=== PATIENT | female | born 1955 | race Caucasian/White ===

== ENCOUNTER 2019-03-31 06:59 | Emergency (ER) | payer OTHER ==
[~2019-03-31] VITALS: Ht 170.2 cm; Wt 101.6 kg
[~2019-03-31 06:59] MED LIST: ALBU90OI; ALBU90OI6 INH; ANTIBIOTIC; AZIT250 PO; CEPH500 PO; CIPR500 PO; CYCL10 PO; FLUO10; FLUO20 PO; FLUT110OIA IH; FURO40 PO; HYDACE5 PO; HYDCHL25 PO; HYDMOR2 PO; LEVFLO500 PO; LEVSOD175; LEVSOD200 PO; LISI20 PO; MONT10T PO; MULTIVITAMIN; NAPR500; NAPR500 PO; OXYACE5T PO; OXYACE7.5T PO; POTCHL10ER PO; PRED20 PO; PROM25 PO; SIMETHICONE; STOOL SOFTENER; TIOT18 IH; [UNRECOGNIZED DRUG - REMARK]; [UNRECOGNIZED DRUG - REMARK]
[2019-03-31] MEDS ORDERED: Vistaril50 MG PO (07:29)
[2019-03-31] MEDS ORDERED: CEPH500 PO (07:29)
[2019-03-31] MEDS ORDERED: Bactrim Ds Tab1 EACH PO (07:29)
== END 2019-03-31 07:54 | disposition home or self-care (01) ==
LOC: ER 06:59
DX: L02.411 Cutaneous abscess of right axilla (principal); L29.9 Pruritus, unspecified; J44.9 Chronic obstructive pulmonary disease, unspecified; Z87.891 Personal history of nicotine dependence
CPT/HCPCS: 99283; Q0177

== ENCOUNTER 2020-10-03 23:20 | Inpatient (IN) | payer OTHER ==
[~2020-10-03] VITALS: Ht 172.7 cm; Wt 121.6 kg
[~2020-10-03 23:20] MED LIST changes: +Bactrim Ds Tab1 EACH PO; +Vistaril50 MG PO
[2020-10-03] MEDS ORDERED: IBUP200 (23:42)
[2020-10-03] MEDS ORDERED: BUDE.25 INH (23:42)
[2020-10-03] MEDS ORDERED: ACET325 PO (23:42)
[2020-10-03] MEDS ORDERED: TRAZ50 (23:43)
[2020-10-03] MEDS ORDERED: LOSA25 (23:44)
[2020-10-03] MEDS ORDERED: EUTHYROX50 MCG (23:44)
[2020-10-03 23:56] LABS: PCO2 Arterial 46.7 mmHg (35-45); PO2 Arterial 65.4 mmHg (80-100); pH Blood Arterial 7.43 (7.35-7.45)
[2020-10-04 00:23] LABS: BASOPHILS ABSOLUTE AUTO 0.03 K/mm3 (0.00-0.23); BASOPHILS PERCENT AUTO 0 % (0-2); EOSINOPHILS ABSOLUTE AUTO 0.01 K/mm3 (0.00-0.68); EOSINOPHILS PERCENT AUTO 0 % (0-6); Hemoglobin 10.9 g/dL (11.5-16.0); IMMATURE GRAN ABSOLUTE AUTO 0.19 K/mm3 (0.00-0.10); IMMATURE GRAN PERCENT AUTO 1 % (0-1); LYMPHOCYTES ABSOLUTE AUTO 0.59 K/mm3 (0.84-5.20); LYMPHOCYTES PERCENT AUTO 3 % (21-46); MONOCYTES ABSOLUTE AUTO 0.57 K/mm3 (0.16-1.47); MONOCYTES PERCENT AUTO 3 % (4-13); Mean Corpuscular HGB 32.8 pg (26.0-34.0); Mean Corpuscular Volume 99 fL (80-100); Mean Platelet Volume 9.3 fL (9.1-12.4); NEUTROPHILS ABSOLUTE AUTO 18.99 K/mm3 (1.96-9.15); NEUTROPHILS PERCENT AUTO 93 % (41-73); Platelet Count 163 K/mm3 (150-400); RDW Coefficient Variation 12.6 % (11.7-14.2); RDW Standard Deviation 45.8 fL (35.1-46.3); Red Blood Cell Count 3.32 M/mm3 (3.80-5.20); White Blood Cell Count 20.38 K/mm3 (4.00-11.30)
[2020-10-04 00:47] LABS: Alanine Aminotransfer (ALT/SGP 17 U/L (12-78); Albumin, Blood 2.8 g/dL (3.4-5.0); Albumin/Globulin Ratio 0.6 (0.8-1.8); Alk Phos 90 U/L (50-136); Anion Gap 5 mmol/L (6-16); Aspartate Aminotrans (AST/SGOT 51 U/L (12-37); Bilirubin, Total 0.8 mg/dL (0.1-1.0); Blood Urea Nitrogen 27 mg/dL (8-24); Bun/Creatinine Ratio 29.1 (12.0-20.0); CO2, Blood 32 mmol/L (21-32); Calcium, Blood 8.6 mg/dL (8.5-10.1); Chloride, Blood 90 mmol/L (98-108); Creatinine, Blood 0.93 mg/dL (0.40-1.00); Ethanol (Alcohol), Blood, Med <3 mg/dL; Globulin, Blood 4.5 g/dL (2.2-4.0); Glomerular Filtration Rate >60 (60-); Glucose, Blood 94 mg/dL (70-99); Potassium, Blood 4.3 mmol/L (3.5-5.5); Salicylate <1.7 mg/dL (2.8-20.0); Sodium, Blood 127 mmol/L (136-145); Total Protein, Blood 7.3 g/dL (6.4-8.2); Troponin I <0.015 ng/mL (0.000-0.040)
[2020-10-04 00:50] LABS: Acetaminophen, Random <2.0 ug/mL (10.0-30.0)
[2020-10-04 01:20] LABS: Source, Urine Clean Catch
[2020-10-04 01:23] LABS: Appearance, Urine Hazy (Clear); Bilirubin, Urine Neg (Neg); Blood, Urine 5+ (Neg); Color, Urine Amber (P-Yellow); Glucose Qualitative, Urine Neg (Neg); Ketones, Urine Neg (Neg); Leukocyte Esterase, Urine 3+ (Neg); Nitrite, Urine Pos (Neg); Protein, Urine 3+ (Neg); Urobilinogen, Urine 1+ (Normal)
[2020-10-04 01:28] LABS: Bacteria Many /hpf; Red Blood Cells, Urine 0-2 /hpf (0-2); Squamous Epithelial Cells Few /hpf (Few); White Blood Cells, Urine 25-50 /hpf (0-5)
[2020-10-04 01:33] LABS: U Amphetamine Screen DETECTED; U Barbituate Screen Not Detected; U Benzodiazapine Screen Not Detected; U Buprenorphine Screen Not Detected; U Cannabinoids Screen DETECTED; U Cocaine Screen Not Detected; U Methadone Screen Not Detected; U Methamphetamine Screen DETECTED; U Opiates Screen Not Detected; U Oxycodone Screen Not Detected; U Phencyclidine Screen Not Detected; U Propoxyphene Screen Not Detected
[2020-10-04] MEDS ORDERED: TIOT18 INH (11:43)
[2020-10-04] MEDS ORDERED: BUDESONIDE-FO10.2 G2 INH (11:43)
[2020-10-04] MEDS ORDERED: LOSARTAN POTAS100 M1 PO (11:44)
[2020-10-04] MEDS ORDERED: OMEP20ER PO (11:44)
[2020-10-04] MEDS ORDERED: BACL10 PO (11:44)
[2020-10-04] MEDS ORDERED: TRAZ150T57 PO (11:44)
[2020-10-04] MEDS ORDERED: PROZAC20 M2 PO (11:45)
[2020-10-04] MEDS ORDERED: LEVSOD100 PO (11:45)
--- NOTE | 2020-10-04 18:32 | NUR ---
SHIFT SUMMARY: ASSUMED CARE OF PATIENT UPON HER ARRIVAL FROM ED AT 1505. A&O X 3, BUT IS CALLING OUT, MAKING NONSENSICAL NOISES. C/O PAIN IN LLE AND BACK; MEDICATED PER EMAR, GIVEN K PAD AND REPOSITIONED SHE COULD TOLERATE. LLE IS ERYTHEMATOUS, EDEMATOUS, HOT, AND PAINFUL TO TOUCH. UNABLE TO EAT MUCH DINNER, ONLY HAS UPPER DENTURES, CHANGED TO SOFT DIET. ON ROOM AIR, STATED SHE USES OXYGEN @ 2 L/MIN NC WHILE SLEEPING. STATED SHE DRINKS ALCOHOL, BUT "A SIX PACK OF BEER LASTS ME ABOUT A WEEK." STATED HAS NOT HAD A DRINK IN A "LONG TIME." HAS GREAT DIFFICULTY MOVING BLE.
[2020-10-05 05:25] LABS: BASOPHILS ABSOLUTE AUTO 0.02 K/mm3 (0.00-0.23); BASOPHILS PERCENT AUTO 0 % (0-2); EOSINOPHILS ABSOLUTE AUTO 0.06 K/mm3 (0.00-0.68); EOSINOPHILS PERCENT AUTO 0 % (0-6); Hematocrit 30.3 % (33.0-51.0); Hemoglobin 9.5 g/dL (11.5-16.0); IMMATURE GRAN ABSOLUTE AUTO 0.12 K/mm3 (0.00-0.10); IMMATURE GRAN PERCENT AUTO 1 % (0-1); LYMPHOCYTES ABSOLUTE AUTO 0.61 K/mm3 (0.84-5.20); LYMPHOCYTES PERCENT AUTO 4 % (21-46); MONOCYTES ABSOLUTE AUTO 0.53 K/mm3 (0.16-1.47); MONOCYTES PERCENT AUTO 3 % (4-13); Mean Corpuscular HGB 31.9 pg (26.0-34.0); Mean Corpuscular HGB Conc 31.4 g/dL (31.5-36.5); Mean Corpuscular Volume 102 fL (80-100); Mean Platelet Volume 9.7 fL (9.1-12.4); NEUTROPHILS ABSOLUTE AUTO 14.57 K/mm3 (1.96-9.15); NEUTROPHILS PERCENT AUTO 92 % (41-73); Platelet Count 148 K/mm3 (150-400); RDW Coefficient Variation 12.8 % (11.7-14.2); RDW Standard Deviation 47.8 fL (35.1-46.3); Red Blood Cell Count 2.98 M/mm3 (3.80-5.20); White Blood Cell Count 15.91 K/mm3 (4.00-11.30)
[2020-10-05 05:33] LABS: Alanine Aminotransfer (ALT/SGP 19 U/L (12-78); Albumin/Globulin Ratio 0.5 (0.8-1.8); Alk Phos 107 U/L (50-136); Anion Gap 1 mmol/L (6-16); Aspartate Aminotrans (AST/SGOT 62 U/L (12-37); Bilirubin, Total 0.5 mg/dL (0.1-1.0); Blood Urea Nitrogen 20 mg/dL (8-24); Bun/Creatinine Ratio 24.5 (12.0-20.0); CO2, Blood 34 mmol/L (21-32); Calcium, Blood 8.2 mg/dL (8.5-10.1); Chloride, Blood 93 mmol/L (98-108); Creatinine, Blood 0.82 mg/dL (0.40-1.00); Globulin, Blood 4.1 g/dL (2.2-4.0); Glomerular Filtration Rate >60 (60-); Glucose, Blood 94 mg/dL (70-99); Potassium, Blood 3.9 mmol/L (3.5-5.5); Sodium, Blood 128 mmol/L (136-145); Total Protein, Blood 6.1 g/dL (6.4-8.2)
--- NOTE | 2020-10-05 06:30 | NUR ---
65 year old Female admitted with acute cellulitis of lt LE. PT states wound was initally caused by fall. PT has extensive bruising in lower abd & pelvic area . She saysshe had a oxygen tank fall on her. LT le 4 plus edema & hot red area from ankle to upper thigh. Recieving IV fluids void x 2 dark mario urine. Provided yogurt & PT took well. On IV antibiotics to tx cellulitis & UTI. Skin care to lt le multiple times to promote healing.Support offered for current illness.
--- NOTE | 2020-10-05 17:45 | NUR ---
SHIFT SUMMARY: NO ACUTE EVENTS. PATIENT CALMER TODAY, MORE COOPERATIVE. C/O PAIN IN LLE AND BACK; MEDICATED PER EMAR WITH ADEQUATE RELIEF, TRAMADOL ADDED. ERYTHEMA ON LLE SLIGHTLY IMPROVED. WEARS O2 @ 2 L/MIN NC WHEN SLEEPING. HAD VENOUS U/S TODAY. ABLE TO REPOSITION WITH ASSISTANCE, USING BEDPAN. HAD VISIT FROM DAUGHTER BANG TODAY; THIS AUTHOR GAVE HER UPDATE ON PT CONDITION WITH PT'S VERBAL CONSENT. SLEPT MOST OF THE DAY.
[2020-10-06 04:56] LABS: Hematocrit 30.2 % (33.0-51.0); Hemoglobin 9.6 g/dL (11.5-16.0); Mean Corpuscular HGB Conc 31.8 g/dL (31.5-36.5); Mean Corpuscular Volume 104 fL (80-100); Mean Platelet Volume 9.4 fL (9.1-12.4); Platelet Count 171 K/mm3 (150-400); RDW Coefficient Variation 12.9 % (11.7-14.2); RDW Standard Deviation 49.5 fL (35.1-46.3); Red Blood Cell Count 2.91 M/mm3 (3.80-5.20); White Blood Cell Count 12.74 K/mm3 (4.00-11.30)
[2020-10-06 05:26] LABS: Alanine Aminotransfer (ALT/SGP 21 U/L (12-78); Albumin, Blood 1.9 g/dL (3.4-5.0); Albumin/Globulin Ratio 0.4 (0.8-1.8); Alk Phos 134 U/L (50-136); Anion Gap 2 mmol/L (6-16); Aspartate Aminotrans (AST/SGOT 48 U/L (12-37); Bilirubin, Total 0.5 mg/dL (0.1-1.0); Blood Urea Nitrogen 17 mg/dL (8-24); Bun/Creatinine Ratio 22.8 (12.0-20.0); CO2, Blood 34 mmol/L (21-32); Calcium, Blood 8.5 mg/dL (8.5-10.1); Chloride, Blood 95 mmol/L (98-108); Creatinine, Blood 0.75 mg/dL (0.40-1.00); Globulin, Blood 4.3 g/dL (2.2-4.0); Glomerular Filtration Rate >60 (60-); Glucose, Blood 82 mg/dL (70-99); Potassium, Blood 3.9 mmol/L (3.5-5.5); Sodium, Blood 131 mmol/L (136-145); Total Protein, Blood 6.2 g/dL (6.4-8.2)
[2020-10-06 05:27] LABS: BAND PERCENT MAN 16 % (0-8); BASOPHILS PERCENT MAN 0 % (0-2); EOSINOPHILS ABSOLUTE MAN 0.12 K/mm3 (0.00-0.68); EOSINOPHILS PERCENT MAN 1 % (0-6); LYMPHOCYTES ABSOLUTE MAN 0.63 K/mm3 (0.84-5.20); LYMPHOCYTES PERCENT MAN 5 % (21-46); MONOCYTES ABSOLUTE MAN 0.25 K/mm3 (0.16-1.47); MONOCYTES PERCENT MAN 2 % (4-13); NEUTROPHILS ABSOLUTE MAN 11.72 K/mm3 (1.96-9.15); SEG NEUTROPHILS PERCENT MAN 76 % (41-73); TOTAL CELLS COUNTED 100
--- NOTE | 2020-10-06 17:36 | NUR ---
SHIFT SUMMARY PT ALERT ORIENTED AND VERY EMOTIONAL TODAY. PT WAS EDUCATED BY THE DR ABOUT THE USE OF DRUGS; BUT PT WAS VERY DEFENSIVE AND STATED THAT SHE ONLY USED IT ON HER BIRTHDAY. PT HAS CELLULITIS ON HER LLE; VERY SWOLLEN- ELEVATE THE AFFECTED SITE AND CONTINUE TO MONITOR; SKIN CARE PROVIDED- SEE PIC IN CHART. PT IS RECEIVING ABX FOR IT AND IT SEEMS GETTING BETTER PER DR. PT WORKED WITH PT/OT TODAY- SEE PT/OT NOTES. ENCOURAGE THE PT TO USE BSC WITH FWW 1 ASSIST WITH GAITBELT FOR MOBILITY. BED ALARM IS ON AND CALL LIGHT WITHIN REACH.
--- NOTE | 2020-10-06 19:50 | NUR ---
ASSUMED CARE. MARIANELA IS AOX3, BUT IS VERY EMOTIONAL WITH FEW MOOD SWINGS YOU TALK WITH HER. LEFT LEG HAS REDNESS AND SWELLING ON LATERAL SIDE OF LEG UP TO GROIN AREA. SHE ALSO HAS SWELLING AND REDNESS AROUND THE CALF AREA. AREAS ARE VERY TENDER ESPECIALLY BEHIND THE KNEE AND THIGH. PAIN IS ONLY WHEN SHE MOVES THE LEG. SHE IS VERY DROWSY AND STATES SHE IS SLEEPY. GROIN IS BRUISED AND THE HIP FROM FALLING. LUNGS ARE CLEAR BUT DIMINISHED. ON 2 LITERS WHICH IS HER BASE LINE. DENIES ANY NEEDS OR COMPLAINTS AT THIS TIME. CALL LIGHT IS IN REACH.
[2020-10-07 05:05] LABS: BASOPHILS ABSOLUTE AUTO 0.06 K/mm3 (0.00-0.23); BASOPHILS PERCENT AUTO 1 % (0-2); EOSINOPHILS ABSOLUTE AUTO 0.21 K/mm3 (0.00-0.68); EOSINOPHILS PERCENT AUTO 2 % (0-6); Hematocrit 31.4 % (33.0-51.0); Hemoglobin 9.8 g/dL (11.5-16.0); IMMATURE GRAN ABSOLUTE AUTO 0.41 K/mm3 (0.00-0.10); IMMATURE GRAN PERCENT AUTO 4 % (0-1); LYMPHOCYTES ABSOLUTE AUTO 0.89 K/mm3 (0.84-5.20); LYMPHOCYTES PERCENT AUTO 8 % (21-46); MONOCYTES ABSOLUTE AUTO 0.77 K/mm3 (0.16-1.47); MONOCYTES PERCENT AUTO 7 % (4-13); Mean Corpuscular HGB Conc 31.2 g/dL (31.5-36.5); Mean Corpuscular Volume 106 fL (80-100); Mean Platelet Volume 9.5 fL (9.1-12.4); NEUTROPHILS PERCENT AUTO 78 % (41-73); Platelet Count 236 K/mm3 (150-400); RDW Coefficient Variation 13.1 % (11.7-14.2); RDW Standard Deviation 50.8 fL (35.1-46.3); Red Blood Cell Count 2.97 M/mm3 (3.80-5.20); White Blood Cell Count 10.84 K/mm3 (4.00-11.30)
[2020-10-07 05:42] LABS: Alanine Aminotransfer (ALT/SGP 23 U/L (12-78); Albumin, Blood 1.8 g/dL (3.4-5.0); Albumin/Globulin Ratio 0.4 (0.8-1.8); Alk Phos 147 U/L (50-136); Anion Gap 2 mmol/L (6-16); Aspartate Aminotrans (AST/SGOT 41 U/L (12-37); Bilirubin, Total 0.3 mg/dL (0.1-1.0); Blood Urea Nitrogen 14 mg/dL (8-24); Bun/Creatinine Ratio 17.9 (12.0-20.0); CO2, Blood 35 mmol/L (21-32); Calcium, Blood 8.7 mg/dL (8.5-10.1); Chloride, Blood 97 mmol/L (98-108); Creatinine, Blood 0.78 mg/dL (0.40-1.00); Globulin, Blood 4.6 g/dL (2.2-4.0); Glomerular Filtration Rate >60 (60-); Glucose, Blood 96 mg/dL (70-99); Sodium, Blood 134 mmol/L (136-145); Total Protein, Blood 6.4 g/dL (6.4-8.2)
--- NOTE | 2020-10-07 05:42 | NUR ---
SHIFT SUMMARY: AOX3, EMOTIONAL AT TIMES, DIFFICULTY WITH COPING. HAS BEEN DROWSY WITH DIFFICULTY STAYING AWAKE. LLE REDNESS HAS DECREASED SOME, SWELLING IS IMPROVING. SORE WITH MOVEMENT. KEPT ELEVATED ENTIRE SHIFT. VS WNL, AFEBRILE. GOOD APPETITE. SLEPT WELL T/O SHIFT. INCONTIENT OF URINE, HAD SEVERAL VERY WET BEDS. BRUISING STILL PRESENT ON LEFT GROIN AREA, LEFT HIP. PAIN TOLERABLE. NO ACUTE CHANGES TO NOTE. CALL LIGHT IS IN REACH. PLAN: IV AB FOR 2 MORE DAYS, PLAN FOR DC HOME.
--- NOTE | 2020-10-07 19:10 | NUR ---
a+o, sleepy but easily rousable, pt was able to get her to walk a few steps but it took a lot of encouragement (and the nurse offered yogurt), call light in reach, abx infused with no s/sx of infection or infiltration, 1 l via nc, bsr shared with noc nurse and pt
--- NOTE | 2020-10-07 20:58 | NUR ---
ASSUMED CARE. ANAYELI IS VERY DROWY AND HAS DIFFICULT KEEPING HER EYES OPEN TO HAVE CONVERSATION. SHE APPEARS TO BE MORE DROWSY TODAY THEN SHE HAS BEEN THE LAST TWO NIGHTS. HAVE TO CONTINUE TO AWAKE HER DURING THE ASSESSMENT. LLE REDNESS HAS DECREASED IN THE MEDIAL AND ANTERIORAL SIDE OF THE LEG. TENDERNESS ON POSTERIOR AND MEDIAL THIGH AREA. SWELLING DECREASING. MILD WEEPING NOTED POSTERIOR. DENIES N/T. PAIN 4/10 UNLESS MOVED THEN 10/10. MEDICATED FOR PAIN WITH PM MEDS, GAVE MORE WATER AND ENCOURAGED HER TO DRINK. REPOSITIONED IN BED ELEVATED LEG. CALL LIGHT IS IN REACH.
[2020-10-08 04:49] LABS: BASOPHILS ABSOLUTE AUTO 0.08 K/mm3 (0.00-0.23); BASOPHILS PERCENT AUTO 1 % (0-2); EOSINOPHILS ABSOLUTE AUTO 0.24 K/mm3 (0.00-0.68); EOSINOPHILS PERCENT AUTO 2 % (0-6); Hematocrit 31.4 % (33.0-51.0); Hemoglobin 9.8 g/dL (11.5-16.0); IMMATURE GRAN ABSOLUTE AUTO 0.75 K/mm3 (0.00-0.10); IMMATURE GRAN PERCENT AUTO 7 % (0-1); LYMPHOCYTES ABSOLUTE AUTO 0.96 K/mm3 (0.84-5.20); LYMPHOCYTES PERCENT AUTO 9 % (21-46); MONOCYTES ABSOLUTE AUTO 0.83 K/mm3 (0.16-1.47); MONOCYTES PERCENT AUTO 8 % (4-13); Mean Corpuscular HGB 33.1 pg (26.0-34.0); Mean Corpuscular HGB Conc 31.2 g/dL (31.5-36.5); Mean Corpuscular Volume 106 fL (80-100); Mean Platelet Volume 8.9 fL (9.1-12.4); NEUTROPHILS PERCENT AUTO 74 % (41-73); Platelet Count 277 K/mm3 (150-400); RDW Coefficient Variation 13.1 % (11.7-14.2); RDW Standard Deviation 51.3 fL (35.1-46.3); Red Blood Cell Count 2.96 M/mm3 (3.80-5.20); White Blood Cell Count 10.86 K/mm3 (4.00-11.30)
[2020-10-08 05:07] LABS: Alanine Aminotransfer (ALT/SGP 27 U/L (12-78); Albumin, Blood 1.8 g/dL (3.4-5.0); Albumin/Globulin Ratio 0.4 (0.8-1.8); Alk Phos 141 U/L (50-136); Anion Gap 1 mmol/L (6-16); Aspartate Aminotrans (AST/SGOT 41 U/L (12-37); Bilirubin, Total 0.3 mg/dL (0.1-1.0); Blood Urea Nitrogen 9 mg/dL (8-24); Bun/Creatinine Ratio 14.9 (12.0-20.0); CO2, Blood 37 mmol/L (21-32); Calcium, Blood 8.5 mg/dL (8.5-10.1); Chloride, Blood 96 mmol/L (98-108); Creatinine, Blood 0.61 mg/dL (0.40-1.00); Globulin, Blood 4.5 g/dL (2.2-4.0); Glomerular Filtration Rate >60 (60-); Glucose, Blood 84 mg/dL (70-99); Potassium, Blood 4.2 mmol/L (3.5-5.5); Sodium, Blood 134 mmol/L (136-145); Total Protein, Blood 6.3 g/dL (6.4-8.2)
[2020-10-08 05:08] LABS: BAND PERCENT MAN 6 % (0-8); BASOPHILS PERCENT MAN 0 % (0-2); EOSINOPHILS ABSOLUTE MAN 0.54 K/mm3 (0.00-0.68); EOSINOPHILS PERCENT MAN 5 % (0-6); LYMPHOCYTES ABSOLUTE MAN 0.97 K/mm3 (0.84-5.20); LYMPHOCYTES PERCENT MAN 9 % (21-46); METAMYELOCYTE ABSOLUTE MAN 0.21 K/mm3 (0.00-0.00); METAMYELOCYTE PERCENT MAN 2 % (0-0); MONOCYTES ABSOLUTE MAN 0.43 K/mm3 (0.16-1.47); MONOCYTES PERCENT MAN 4 % (4-13); MYELOCYTE PERCENT MAN 1 % (0-0); NEUTROPHILS ABSOLUTE MAN 8.57 K/mm3 (1.96-9.15); SEG NEUTROPHILS PERCENT MAN 73 % (41-73); TOTAL CELLS COUNTED 100
--- NOTE | 2020-10-08 05:53 | NUR ---
SHIFT SUMMARY: MARIANELA HAS SLEPT THE ENTIRE SHIFT. SHE HAS BEEN VERY DROWSY AND FALLING ASLEEP ALL THE TIME. IT GOT WORSE AFTER GIVING THE TRAZADONE. SHE WILL WAKE UP AND TALK BUT TENDS TO FALL RIGHT BACK TO SLEEP. LLE STILL SWOLLEN BUT IT IS IMPROVING, REDNESS HAS GONE DOWN, STILL VERY TENDER AND PAINFUL WHEN MOVING. VS HAVE REMAINED WNL, AFEBRILE THIS SHIFT. CALL LIGHT HAS REMAINED IN REACH. PLAN: IV AB, MONITOR AND ASSESS, ENCOURAGE AMBULATION OR GETTING UP TO CHAIR FOR MEALS, WILL PASS ON TO HOLD TRAZADONE TO SEE IF SHE STARTS TO COME MORE ALERT.
--- NOTE | 2020-10-08 10:24 | NUR ---
PT REPORTS R IV WAS INFILTRATED SO THEY TRIED L AC AND THEN SUCCEEDED WITH L FOREARM, INFUSING NOW WITH NO PROBLEM, IV WAS PLACED AT NIGHT NOT BY MANUEL HE JUST RECORDED THE FACT IT WAS THERE SO HE COULD ASSESS
--- NOTE | 2020-10-08 17:58 | NUR ---
a+o but sleepy, declined dinner said it looked awful but wanted the fruit cup and yogurt, will pass on to noc shift to consider reducing medication, daughter called and expressed conern about amount of time pt was sleeping, daughter asked to talk to who had expressed willingness to speak to her, gave dr daughter's # after pt had agreed he could provide all info to daughter r/her care, tried to reduce 02 but pt destated, so have o2 via nc at 1L, pt staying above 90%, will pass on info to noc nurse at bsr, will continue to monitor and treat
[2020-10-09 05:11] LABS: EOSINOPHILS PERCENT AUTO 2 % (0-6); Hematocrit 35.6 % (33.0-51.0); Hemoglobin 10.9 g/dL (11.5-16.0); IMMATURE GRAN ABSOLUTE AUTO 1.06 K/mm3 (0.00-0.10); IMMATURE GRAN PERCENT AUTO 10 % (0-1); LYMPHOCYTES ABSOLUTE AUTO 1.25 K/mm3 (0.84-5.20); LYMPHOCYTES PERCENT AUTO 12 % (21-46); MONOCYTES ABSOLUTE AUTO 0.67 K/mm3 (0.16-1.47); MONOCYTES PERCENT AUTO 7 % (4-13); Mean Corpuscular HGB 32.2 pg (26.0-34.0); Mean Corpuscular HGB Conc 30.6 g/dL (31.5-36.5); Mean Corpuscular Volume 105 fL (80-100); Mean Platelet Volume 8.9 fL (9.1-12.4); NEUTROPHILS ABSOLUTE AUTO 6.97 K/mm3 (1.96-9.15); NEUTROPHILS PERCENT AUTO 68 % (41-73); Platelet Count 330 K/mm3 (150-400); RDW Coefficient Variation 12.9 % (11.7-14.2); RDW Standard Deviation 50.4 fL (35.1-46.3); Red Blood Cell Count 3.38 M/mm3 (3.80-5.20); White Blood Cell Count 10.19 K/mm3 (4.00-11.30)
[2020-10-09 05:21] LABS: BASOPHILS ABSOLUTE AUTO 0.04 K/mm3 (0.00-0.23); BASOPHILS PERCENT AUTO 0 % (0-2)
[2020-10-09 05:28] LABS: Alanine Aminotransfer (ALT/SGP 32 U/L (12-78); Albumin/Globulin Ratio 0.4 (0.8-1.8); Alk Phos 146 U/L (50-136); Anion Gap 1 mmol/L (6-16); Aspartate Aminotrans (AST/SGOT 47 U/L (12-37); Bilirubin, Total 0.4 mg/dL (0.1-1.0); Blood Urea Nitrogen 8 mg/dL (8-24); Bun/Creatinine Ratio 13.5 (12.0-20.0); CO2, Blood 39 mmol/L (21-32); Calcium, Blood 9.1 mg/dL (8.5-10.1); Chloride, Blood 94 mmol/L (98-108); Creatinine, Blood 0.59 mg/dL (0.40-1.00); Globulin, Blood 4.9 g/dL (2.2-4.0); Glomerular Filtration Rate >60 (60-); Glucose, Blood 88 mg/dL (70-99); Sodium, Blood 134 mmol/L (136-145); Total Protein, Blood 6.9 g/dL (6.4-8.2)
[2020-10-09 05:48] LABS: BAND PERCENT MAN 3 % (0-8); BASOPHILS PERCENT MAN 0 % (0-2); EOSINOPHILS PERCENT MAN 1 % (0-6); LYMPHOCYTES ABSOLUTE MAN 1.63 K/mm3 (0.84-5.20); LYMPHOCYTES PERCENT MAN 16 % (21-46); METAMYELOCYTE PERCENT MAN 2 % (0-0); MONOCYTES ABSOLUTE MAN 0.81 K/mm3 (0.16-1.47); MONOCYTES PERCENT MAN 8 % (4-13); MYELOCYTE PERCENT MAN 1 % (0-0); NEUTROPHILS ABSOLUTE MAN 7.33 K/mm3 (1.96-9.15); SEG NEUTROPHILS PERCENT MAN 69 % (41-73); TOTAL CELLS COUNTED 100
--- NOTE | 2020-10-09 06:32 | NUR ---
SHIFT SUMMARY PATIENT ALERT AND ORIENTED. WAS MEDICATED ONCE FOR PAIN. DENIED ANY NAUSEA OR SHORTNESS OF BREATH. WAS ABLE TO SLEEP WELL OVERNIGHT. IV PATENT AND FLUSHED. BED IN LOWEST POSITION WITH WHEELS LOCKED AND ALARM ON. CALL LIGHT WITHIN REACH. REPORT GIVEN TO ONCOMING RN.
[2020-10-09 15:50] LABS: Uric Acid, Blood 3.1 mg/dL (2.6-6.0)
[2020-10-09 15:53] LABS: C-REACTIVE PROTEIN, EXT RANGE >19.000 mg/dL (0.000-0.300)
--- NOTE | 2020-10-09 19:37 | NUR ---
red area on legs greater and blisters on tongue (pt states they have been there all along but not noted during am assessment) dr aware of legs and blister information passed on to noc nurse, attempted to inform of blisters but am was full, call light in reach, granddaughter states that she brought lower partial in and left it on tray on saturday, have not seen and could not find this pm when searched room, 1 L of 02 to keep stats above 90%, rt installed oximeter
--- NOTE | 2020-10-10 04:40 | NUR ---
SHIFT SUMMARY ALERT, ABLE TO MAKE NEEDS KNOWN. COOPERATIVE WITH CARE. CALLS AND ANSWERS QUESTIONS APPROPRIATELY. C/O PAIN/DISCOMFORT TO LLE AND TONGUE. NEWLY NOTED BLISTERS ON TONGUE BY DAY SHIFT RN 10/09/20. VSS/AFEBRILE. RECIEVED ABX WITHOUT COMPLICATIONS. UP WITH 1P ASSIST TO BSC; TOLERATES WELL. APPEARED TO REST MUCH OF THE NIGHT. NO ACUTE CHANGES NOTED AT THIS TIME. BED REMAINS IN LOWEST POSITION. CALL LIGHT AND BELONGINGS WITHIN REACH. REPORT TO ONCOMING RN.
[2020-10-10 05:19] LABS: Hematocrit 31.9 % (33.0-51.0); Hemoglobin 9.8 g/dL (11.5-16.0); Mean Corpuscular HGB 32.7 pg (26.0-34.0); Mean Corpuscular HGB Conc 30.7 g/dL (31.5-36.5); Mean Corpuscular Volume 106 fL (80-100); Mean Platelet Volume 8.8 fL (9.1-12.4); Platelet Count 314 K/mm3 (150-400); RDW Coefficient Variation 12.8 % (11.7-14.2); RDW Standard Deviation 50.2 fL (35.1-46.3); White Blood Cell Count 8.44 K/mm3 (4.00-11.30)
[2020-10-10 05:54] LABS: BAND PERCENT MAN 6 % (0-8); BASOPHILS PERCENT MAN 0 % (0-2); EOSINOPHILS PERCENT MAN 0 % (0-6); LYMPHOCYTES ABSOLUTE MAN 0.92 K/mm3 (0.84-5.20); LYMPHOCYTES PERCENT MAN 11 % (21-46); METAMYELOCYTE ABSOLUTE MAN 0.33 K/mm3 (0.00-0.00); METAMYELOCYTE PERCENT MAN 4 % (0-0); MONOCYTES ABSOLUTE MAN 0.42 K/mm3 (0.16-1.47); MONOCYTES PERCENT MAN 5 % (4-13); MYELOCYTE ABSOLUTE MAN 0.42 K/mm3 (0.00-0.00); MYELOCYTE PERCENT MAN 5 % (0-0); NEUTROPHILS ABSOLUTE MAN 6.33 K/mm3 (1.96-9.15); SEG NEUTROPHILS PERCENT MAN 69 % (41-73); TOTAL CELLS COUNTED 100
[2020-10-10 06:02] LABS: Alanine Aminotransfer (ALT/SGP 30 U/L (12-78); Albumin, Blood 1.8 g/dL (3.4-5.0); Albumin/Globulin Ratio 0.4 (0.8-1.8); Alk Phos 119 U/L (50-136); Anion Gap 0 mmol/L (6-16); Aspartate Aminotrans (AST/SGOT 41 U/L (12-37); Bilirubin, Total 0.3 mg/dL (0.1-1.0); Blood Urea Nitrogen 8 mg/dL (8-24); Bun/Creatinine Ratio 14.2 (12.0-20.0); CO2, Blood 42 mmol/L (21-32); Calcium, Blood 8.6 mg/dL (8.5-10.1); Chloride, Blood 93 mmol/L (98-108); Creatinine, Blood 0.57 mg/dL (0.40-1.00); Globulin, Blood 4.7 g/dL (2.2-4.0); Glomerular Filtration Rate >60 (60-); Glucose, Blood 86 mg/dL (70-99); Sodium, Blood 135 mmol/L (136-145); Total Protein, Blood 6.5 g/dL (6.4-8.2)
--- NOTE | 2020-10-10 18:39 | NUR ---
SHIFT SUMMARY PT REPORTING SIGNIFICANT PAIN TO MOUTH THIS MORNING THAT HAS PERSISTED THROUGH THE DAY. DID RECEIVE ORDER FOR MAGIC MOUTH WASH LATE IN THE DAY AND PT REPORTED IT HELPED MORE THAN SHE EXPECTED. HAS KEPT LLE ELEVATED ON A PILLOW MOST OF DAY. BLISTERS TO POSTERIOR LEG. DR. PERALTA IN TO SEE PT AND OBTAINED SPECIMENS. DAUGHTER AT BEDSIDE THIS AFTERNOON AND PROVIDED ENCOURAGEMENT TO PT. PT DID CRY SEVERAL TIMES WHILE DAUGHTER AT BEDSIDE AND HAS BEEN TEARFUL ON AND OFF SINCE SHE LEFT. O2 HAS REMAINED ON DUE TO SATS VASILATING FREQUENTLY WHILE LAYING IN BED.
--- NOTE | 2020-10-11 04:18 | NUR ---
SHIFT SUMMARY: PT A&O X4. VSS THIS SHIFT. LEFT LOWER EXTREMITY HAS REMAINED ELEVATED ON PILLOW. REDNESS NOTED WITH BLISTERS SCATTERED THROUGHOUT. LEG OPEN TO AIR WITHOUT DRG. PT C/O 05/06 PAIN ONCE THIS SHIFT AND MEDICATED WITH TYLENOL AND ULTRAM. REPORTS PAIN TO TONGUE HAS IMPROVED WITH MAGIC MOUTH WASH. SMALL, WHITE ULCERNATIONS NOTED WITH MILD REDNESS. PT DID APPEAR TO BE RESTLESS/ANXIOUS LAST NIGHT AND ASKED FOR ALBUTEROL INHALER BUT WHEN TREATMENT OFFERED PT DECLINED AND STATED THAT SHE WOULD WORK ON HER BREATHING. O2 REMAINED STABLE ON 2L DURING THIS TIME. PT ABLE TO RELAX AFTER SEVERAL MINUTES. USING BEDPAN TO VOID PER PT REQUEST. NHI PO. SALINE LOCKED BETWEEN ABX INFUSIONS.
[2020-10-11 07:09] LABS: HBSAG SCREEN Negative (Negative); HEP B CORE AB, TOT Negative (Negative); HEP C VIRUS AB <0.1 (0.0-0.9)
[2020-10-11 08:09] LABS: COMPLEMENT C3, SERUM 179 mg/dL (82-167); COMPLEMENT C4, SERUM 40 mg/dL (12-38)
--- NOTE | 2020-10-11 08:52 | NUR ---
PT HAS BEEN ROLLING EYES ANY TIME TRYING TO HELP OR SUGGEST THINGS TO HELP, PT HAS ALSO BEEN GETTING LIPPY.
--- NOTE | 2020-10-11 19:46 | NUR ---
SHIFT SUMMARY PT UP TO RECLINER CHAIR WITH O.T. THIS AFTENOON AND PT GAVE HERSELF A SPONGE BATH. CRYING WITH MOVEMENT OUT OF BED. OBTAINED ANOTHER CULTURE FROM LLE AND SENT TO LAB AFTER SPEAKING WITH DR. PERALTA THIS MORNING. PT INSISTING SHE NEEDED AN ORAL PAIN MED FOR HER TONGUE TODAY DESPITE SAYING THE MAGIC MOUTH WASH HELPS. SPOKE WITH MD-SEE NEW ORDER. O2 REMAINED ON THROUGH DAY. PT IS DESATURATING ON RA BETWEEN 82-94%-HAND WARM, NAIL URDU REMOVED, SITTING QUIETLY AND BREATHING NORMALLY. SPIRITS IMPROVED FROM YESTERDAY BUT CAN BE LABILE, LAUGHING AND CHATTING AND THEN CRYING. CAN BE DEMANDING TODAY WELL COMPARED TO YESTERDAY. LLE ELEVATED ON PILLOW WHILE IN BED AND WHILE IN CHAIR. SWELLING CONTIUES WITH DISCOLORATION. NO NEW BLISTERS NOTED AND BLISTERS SHE HAD HAVE DRAINED. TONGUE LESS RED TODAY BUT APPEARS TO HAVE FISSURES ALONG WITH WHITE PATCHES.
--- NOTE | 2020-10-12 04:48 | NUR ---
SHIFT SUMMARY NO ACUTE CHANGES TO REPORT THIS SHIFT. CELLULITIS TO LLE IMPROVING. LEG ELEVATED ON PILLOWS. MINIMAL DRAINAGE NOTED. PT PAIN IS MINIMAL. IV ANTIBIOTICS CONTINUED ORDERED. VITALS ARE STABLE. PT AMBUALTES TO THE BSC WITH 1 PA, BUT OCCASINOALLY REQUESTS TO USE BED ADAME WHEN SHE FEELS SHE IS NOT GOING TO MAKE IT TO THE COMMODE WITHOUT HAVING AN ACCIDENT. ASSESSMENT UNCHANGED. BED IN LOWEST POSITION, CALL LIGHT WITHIN REACH.
[2020-10-12 11:10] LABS: ANA DIRECT Negative (Negative); ANTI-DNA (DS) AB QN <1 IU/mL (0-9); RNP ANTIBODIES 0.4 AI (0.0-0.9); SJOGREN'S ANTI-SS-A <0.2 AI (0.0-0.9); SJOGREN'S ANTI-SS-B <0.2 AI (0.0-0.9); SMITH ANTIBODIES <0.2 AI (0.0-0.9)
--- NOTE | 2020-10-12 18:59 | NUR ---
SHIFT SUMMARY- PT ALERT AND ORIENTED, EMOTIONS ARE VERY LABILE AND SHE IS QUICK TO CRY. DR ARRINGTON CAME TO SEE HER (SKIN DOC) AND REQUESTED THAT STAFF TRY DRESSING THE LEG RATHER THAN LEAVING IT VEGETABLE COOK. SHE REQUESTED PETROLIUM DRESSING OVER ANY RAW AREAS THEN WRAPPED WITH SHASHA AND TRAMAINE WRAP WITH A LITTLE TENSION ON IT TO APPLY SOME PRESSURE TO THE SWOLLEN LEG. PT STATED ONCE THE DRESSING WAS PLACED THAT IT ACTUALLY FELT A LITTLE BETTER. PT TO GET UP INTO A CHAIR WITH ALL MEALS.
--- NOTE | 2020-10-13 04:02 | NUR ---
SUMMARY PT HAD A NOTED PERIOD OF INCREASED ANXIETY. PT DESCRIBED EPISODE A PANIC ATTACK. PT ALSO REPORTED INCREASED PAIN AND TX PER EMAR. PT EVENTUALLY WAS ABLE TO SLEEP. PT CURRENTLY SLEEPING AND BREATHING EASY. CALL LIGHT IN REACH.
[2020-10-13 04:57] LABS: Hematocrit 32.1 % (33.0-51.0); Hemoglobin 9.6 g/dL (11.5-16.0); Mean Corpuscular HGB 32.1 pg (26.0-34.0); Mean Corpuscular HGB Conc 29.9 g/dL (31.5-36.5); Mean Corpuscular Volume 107 fL (80-100); Mean Platelet Volume 8.5 fL (9.1-12.4); Platelet Count 305 K/mm3 (150-400); RDW Coefficient Variation 13.1 % (11.7-14.2); RDW Standard Deviation 52.2 fL (35.1-46.3); Red Blood Cell Count 2.99 M/mm3 (3.80-5.20); White Blood Cell Count 7.45 K/mm3 (4.00-11.30)
[2020-10-13 05:25] LABS: Anion Gap 0 mmol/L (6-16); Blood Urea Nitrogen 15 mg/dL (8-24); Bun/Creatinine Ratio 24.3 (12.0-20.0); CO2, Blood 42 mmol/L (21-32); Calcium, Blood 8.6 mg/dL (8.5-10.1); Chloride, Blood 91 mmol/L (98-108); Creatinine, Blood 0.62 mg/dL (0.40-1.00); Glomerular Filtration Rate >60 (60-); Glucose, Blood 81 mg/dL (70-99); Potassium, Blood 4.8 mmol/L (3.5-5.5); Sodium, Blood 133 mmol/L (136-145)
[2020-10-13 13:08] LABS: ATYPICAL PANCA <1:20 titer (Neg:<1:20); CYTOPLASMIC (C-ANCA) <1:20 titer (Neg:<1:20); PERINUCLEAR (P-ANCA) <1:20 titer (Neg:<1:20)
--- NOTE | 2020-10-13 16:17 | NUR ---
CALLED AND SPOKE TO DR. PRADO- PT SBP LESS THAN 100 ON MORNING VITALS HELD COZAAR FOR CLINICAL JUDGEMENT ON EVENING VITALS SBP STILL LESS THAN 100. RECIEVED ORDER FOR DOSE REDUCTION FROM 25 TO 12.5 AND HOLD FOR SBP LESS THAN 110.
--- NOTE | 2020-10-13 16:23 | NUR ---
SPOKE TO DR BAXTER- PT WILL NOT BE DISCHARGING TODAY CALLED [facility] AND HIS DAUGHTER PER THEIR REQUEST THEY ARE AWARE. [facility] STATES THE PT WILL NEED A RAPID COVID TEST BEFORE RETURNING TO THEIR FACILITY. SPOKE TO ELMA FROM [place] AND SHE IS AWARE OF THIS.
--- NOTE | 2020-10-13 18:44 | NUR ---
SHIFT SUMMARY- PT ALERT AND ORIENTED. VERY LABILE EASY TO CRY OR LAUGH. PT MEDICATED FOR PAIN ONCE TODAY WRAP CHANGED ON HER LEG. SPOKE TO DR ARRINGTON SHE WANTED THE ADDITION OF AN TRAMAINE WRAP ON THE PT LEFT FOOT WELL THE LEG. WRAP CHANGED FOR THE LEG AND THEN THE TRAMAINE WRAP FOR THE FOOT WAS ADDED ON. PT RECIEVED ONE DOSE OF PAIN MEDICATION, BP HAS BEEN A BIT LOW, DR RUIZ SEE PREVIOUS NOTES FOR DETAILS. PT DAUGHTER CAME TO VISIT AND RECIEVED AN UPDATE FROM DR PRADO. PT HAS NO S&S OF DISTRESS NOTED AT THIS TIME O2 IN PLACE AT 2L VIA NC. PASSED ALL ON IN BEDSIDE REPORT.
--- NOTE | 2020-10-14 06:28 | NUR ---
SUMMARY PT HAD NO NEW ISSUES NOTED. PT SLEPT FOR MOST OF SHIFT. PT ONLY C/O PAIN THIS AM. NO ANXIETY NOTED DURING SHIFT. PT PLESANT AND COOPERATIVE. PT CURRENTLY AWAKE AND WATCHING TV. CALL LIGHT IN REACH.
[2020-10-14] MEDS ORDERED: CLIN150 PO (10:36)
[2020-10-14] MEDS ORDERED: OXYC5 PO (10:37)
[2020-10-14] MEDS ORDERED: PRED5EL PO (10:43)
[2020-10-14] MEDS ORDERED: VISBIOME PROBIOTIC PO (10:45)
--- NOTE | 2020-10-14 15:34 | NUR ---
PT AWAKE DURING SHIFT REPORT. A&O, PLEASANT AND CO-OP. PT VERY TALKATIVE. ADMITTED FOR LLE CELLULTIS. DR PRADO IN TO SEE PT, REMOVING DRSG'S TO LLE. PT'S LEG MUCH IMPROVED. SWELLING AND REDNESS VERY DECREASED. PT TO GO HOME. D/C ORDERS PLACED. IV SITE TO RFA D/C'D WNL'S. PT REQUESTING LLE LEFT OPEN TO AIR. PT REPORTED, PER ORDERS. PT D/C'D WITH PO ABX TO CONTINUE UNTIL COMPLETION, TO MX LEG FOR ANY INCREASE IN REDNESS OR SWELLING, AND TO F/U WITH PCP DIRECTED. DAUGHTER NOTIFIED OF D/C ORDERS. PT ASSISTED DOWN TO DAUGHTERS CAR VIA W/C BY SHAGGER WHEN HERE TO P/U.
== END 2020-10-14 12:41 | disposition home or self-care (01) | DRG 603 ==
LOC: ER 23:20 → ERHOLD 23:21 → MEDS 10-04 14:57 → ERHOLD 10-04 14:57 → MEDS 10-04 15:03
PROVIDERS: Emergency Medicine; Family Medicine; ADMIT Internal Medicine
DX: L03.116 Cellulitis of left lower limb (principal); E87.1 Hypo-osmolality and hyponatremia; N39.0 Urinary tract infection, site not specified; A46 Erysipelas; E03.9 Hypothyroidism, unspecified; F19.10 Other psychoactive substance abuse, uncomplicated; F41.0 Panic disorder [episodic paroxysmal anxiety]; G89.29 Other chronic pain; I10 Essential (primary) hypertension; J44.9 Chronic obstructive pulmonary disease, unspecified; K14.0 Glossitis; K12.1 Other forms of stomatitis; B96.20 Unspecified Escherichia coli [E. coli] as the cause of diseases classified elsewhere; E78.5 Hyperlipidemia, unspecified; F17.210 Nicotine dependence, cigarettes, uncomplicated
CPT/HCPCS: 36415; 36600; 73590; 80048; 80053; 81001; 81025; 82140; 82595; 82803; 83605; 84443; 84484; 84550; 85025; 85027; 85651; 86038; 86140; 86160; 86225; 86235; 86256; 86704; 86708; 86803; 87040; 87070; 87077; 87086; 87186; 87205; 87340; 93005; 93010; 93971; 94640; 94760; 94762; 96365; 96375; 97110; 97161; 97166; 97530; 97535; 99284-25; A9270; G0480; J0295; J0690; J0696; J1650; J2405; J3010; J7030; J7050

== ENCOUNTER 2020-11-05 16:18 | Emergency (ER) | payer OTHER ==
[~2020-11-05] VITALS: Ht 172.7 cm; Wt 104.3 kg
[~2020-11-05 16:18] MED LIST changes: +ACET325 PO; +BACL10 PO; +BUDE.25 INH; +BUDESONIDE-FO10.2 G2 INH; +CLIN150 PO; +EUTHYROX50 MCG; +IBUP200; +LEVSOD100 PO; +LOSA25; +LOSARTAN POTAS100 M1 PO; +OMEP20ER PO; +OXYC5 PO; +PRED5EL PO; +PROZAC20 M2 PO; +TIOT18 INH; +TRAZ150T57 PO; +TRAZ50; +VISBIOME PROBIOTIC PO
[2020-11-06] MEDS ORDERED: LOSA50 PO (17:47)
== END 2020-11-05 20:22 | disposition home or self-care (01) ==
LOC: ER 16:18
DX: S86.812A Strain of other muscle(s) and tendon(s) at lower leg level, left leg, initial encounter (principal); M25.552 Pain in left hip; J44.9 Chronic obstructive pulmonary disease, unspecified; F17.210 Nicotine dependence, cigarettes, uncomplicated; Z79.51 Long term (current) use of inhaled steroids; Z79.899 Other long term (current) drug therapy; Z79.52 Long term (current) use of systemic steroids; W18.30XA Fall on same level, unspecified, initial encounter
CPT/HCPCS: 73502; 73562-LT; 99283-25; A9270

== ENCOUNTER 2020-11-06 11:20 | Inpatient (IN) | payer OTHER ==
[~2020-11-06] VITALS: Ht 170.2 cm; Wt 117.0 kg
[2020-11-06 12:18] LABS: BASOPHILS ABSOLUTE AUTO 0.04 K/mm3 (0.00-0.23); BASOPHILS PERCENT AUTO 0 % (0-2); EOSINOPHILS ABSOLUTE AUTO 0.01 K/mm3 (0.00-0.68); EOSINOPHILS PERCENT AUTO 0 % (0-6); Hematocrit 35.5 % (33.0-51.0); Hemoglobin 10.4 g/dL (11.5-16.0); IMMATURE GRAN ABSOLUTE AUTO 0.07 K/mm3 (0.00-0.10); IMMATURE GRAN PERCENT AUTO 1 % (0-1); LYMPHOCYTES PERCENT AUTO 7 % (21-46); MONOCYTES ABSOLUTE AUTO 0.41 K/mm3 (0.16-1.47); MONOCYTES PERCENT AUTO 4 % (4-13); Mean Corpuscular HGB 32.5 pg (26.0-34.0); Mean Corpuscular HGB Conc 29.3 g/dL (31.5-36.5); Mean Corpuscular Volume 111 fL (80-100); Mean Platelet Volume 9.1 fL (9.1-12.4); NEUTROPHILS ABSOLUTE AUTO 10.32 K/mm3 (1.96-9.15); NEUTROPHILS PERCENT AUTO 89 % (41-73); Platelet Count 214 K/mm3 (150-400); RDW Coefficient Variation 13.9 % (11.7-14.2); RDW Standard Deviation 57.8 fL (35.1-46.3); White Blood Cell Count 11.65 K/mm3 (4.00-11.30)
[2020-11-06 12:33] LABS: Alanine Aminotransfer (ALT/SGP 10 U/L (12-78); Albumin, Blood 2.9 g/dL (3.4-5.0); Albumin/Globulin Ratio 0.6 (0.8-1.8); Alk Phos 79 U/L (50-136); Anion Gap 1 mmol/L (6-16); Aspartate Aminotrans (AST/SGOT 20 U/L (12-37); Bilirubin, Total 0.4 mg/dL (0.1-1.0); Blood Urea Nitrogen 16 mg/dL (8-24); Bun/Creatinine Ratio 27.2 (12.0-20.0); CO2, Blood 39 mmol/L (21-32); Calcium, Blood 8.6 mg/dL (8.5-10.1); Chloride, Blood 102 mmol/L (98-108); Creatinine, Blood 0.59 mg/dL (0.40-1.00); Ethanol (Alcohol), Blood, Med <3 mg/dL; Globulin, Blood 5.2 g/dL (2.2-4.0); Glomerular Filtration Rate >60 (60-); Glucose, Blood 100 mg/dL (70-99); Potassium, Blood 4.7 mmol/L (3.5-5.5); Sodium, Blood 142 mmol/L (136-145); Total Protein, Blood 8.1 g/dL (6.4-8.2)
[2020-11-06 12:46] LABS: International Normalized Ratio 0.96; Prothrombin Time Results 10.3 Sec (9.7-11.5)
[2020-11-06 13:09] LABS: Source, Urine Catheter
[2020-11-06 13:23] LABS: Appearance, Urine Turbid (Clear); Bilirubin, Urine Neg (Neg); Blood, Urine 3+ (Neg); Color, Urine Yellow (P-Yellow); Glucose Qualitative, Urine Neg (Neg); Ketones, Urine 1+ (Neg); Leukocyte Esterase, Urine 3+ (Neg); Nitrite, Urine Pos (Neg); Protein, Urine 2+ (Neg); Specific Gravity, Urine 1.025 (1.003-1.022); Urobilinogen, Urine NORM (Normal)
[2020-11-06 13:32] LABS: Bacteria Many /hpf; Red Blood Cells, Urine 0-2 /hpf (0-2); Squamous Epithelial Cells Rare /hpf (Few); White Blood Cells, Urine TNTC /hpf (0-5)
[2020-11-06 13:41] LABS: U Amphetamine Screen Not Detected; U Barbituate Screen Not Detected; U Benzodiazapine Screen DETECTED; U Buprenorphine Screen Not Detected; U Cannabinoids Screen DETECTED; U Cocaine Screen Not Detected; U Methadone Screen Not Detected; U Methamphetamine Screen Not Detected; U Opiates Screen DETECTED; U Oxycodone Screen DETECTED; U Phencyclidine Screen Not Detected; U Propoxyphene Screen Not Detected
[2020-11-06] MEDS ORDERED: LOSA50 PO (17:47)
[2020-11-06 18:59] LABS: Influenza A, PCR Negative (NEGATIVE); Influenza B, PCR Negative (NEGATIVE); Resp Syncytial Virus, PCR Negative (NEGATIVE); SARS-Cov-2 (COVID-19) PCR, MMC Negative (NEGATIVE)
--- NOTE | 2020-11-07 02:40 | NUR ---
REPORT GIVEN TO PARAG MCCABE.
[2020-11-07 04:54] LABS: BASOPHILS ABSOLUTE AUTO 0.01 K/mm3 (0.00-0.23); BASOPHILS PERCENT AUTO 0 % (0-2); EOSINOPHILS PERCENT AUTO 0 % (0-6); Hematocrit 31.5 % (33.0-51.0); Hemoglobin 9.2 g/dL (11.5-16.0); IMMATURE GRAN ABSOLUTE AUTO 0.07 K/mm3 (0.00-0.10); IMMATURE GRAN PERCENT AUTO 1 % (0-1); LYMPHOCYTES ABSOLUTE AUTO 0.68 K/mm3 (0.84-5.20); LYMPHOCYTES PERCENT AUTO 8 % (21-46); MONOCYTES ABSOLUTE AUTO 0.03 K/mm3 (0.16-1.47); MONOCYTES PERCENT AUTO 0 % (4-13); Mean Corpuscular HGB 31.9 pg (26.0-34.0); Mean Corpuscular HGB Conc 29.2 g/dL (31.5-36.5); Mean Corpuscular Volume 109 fL (80-100); Mean Platelet Volume 9.1 fL (9.1-12.4); NEUTROPHILS ABSOLUTE AUTO 7.94 K/mm3 (1.96-9.15); NEUTROPHILS PERCENT AUTO 91 % (41-73); Platelet Count 189 K/mm3 (150-400); RDW Coefficient Variation 14.1 % (11.7-14.2); RDW Standard Deviation 56.6 fL (35.1-46.3); Red Blood Cell Count 2.88 M/mm3 (3.80-5.20); White Blood Cell Count 8.73 K/mm3 (4.00-11.30)
--- NOTE | 2020-11-07 04:57 | NUR ---
SUPERVISOR STAGE CARPENTRY SUMMARY ASSUMED CARE FROM ESTELLE WAGNER AT 0300. PT IS STABLE ON 2L NC. PT CONTINUES TO HAVE PAIN IN BLE, MEDICATED PER EMAR. PT IS SLEEPING W CALL LIGHT WITHIN REACH, TELE- NSR 70'S.
[2020-11-07 05:15] LABS: Anion Gap 1 mmol/L (6-16); Blood Urea Nitrogen 16 mg/dL (8-24); Bun/Creatinine Ratio 29.9 (12.0-20.0); CO2, Blood 39 mmol/L (21-32); Calcium, Blood 8.6 mg/dL (8.5-10.1); Chloride, Blood 99 mmol/L (98-108); Creatinine, Blood 0.54 mg/dL (0.40-1.00); Glomerular Filtration Rate >60 (60-); Glucose, Blood 144 mg/dL (70-99); Potassium, Blood 4.4 mmol/L (3.5-5.5); Sodium, Blood 139 mmol/L (136-145)
--- NOTE | 2020-11-07 18:23 | NUR ---
SHIFT SUMMARY- PT IS ALERT, HAS BEEN AGITATED THIS SHIFT. SHE IS INC OF URINE AND HAS REQUIRED SEVERAL BED CHANGES THIS SHIFT. SHE IS EATING AND DRINKING WELL. RECIEVING PAIN MEDICATION NEEDED. SHE HAS SOME CONFUSION. WORKED WITH PT THIS SHIFT AND DID NOT TOLERATE WELL. DAUGHTER AT BEDSIDE THIS AFTERNOON, SPOKE WITH CHIEF MEDICAL PHYSICIST ABOUT POSSIBILITY OF [facility]. PT WAS AGREEABLE TO GO TO AN [facility]. SHE IS ON 2 L OF O2. HER BED IS IN THE LOW POSITION AND CALL LIGHT IS WITHIN REACH.
--- NOTE | 2020-11-08 04:08 | NUR ---
SUMMARY: PT A/O BUT FORGETFULL AND CALLS OFTEN FOR SAME NON-ACUTE NEEDS. SHE'S MOSTLY PLEASANT/COOPERATIVE BUT CAN BE IRRITABLE AND EMOTIONALLY LABILE AT TIMES. BED ALARM ON FOR FALL RISK BUT SHE IS VERY UNMOTIVATED RE: MOBILITY DESPITE ENCOURAGEMENT. PT WAS INCONTINENT OF URINE W/LINEN AND ATTENDS CHANGED PRN. SHE REMAINS NSR AT 70'S BPM ON TELEMETRY. SHE REPORTS PAIN TO LLE/L.HIP R/T RESOLVING CELLULITIS AND CHRONIC BACK PAIN. TYLENOL AND NORCO PRN WERE EFFECTIVE. PT SLEPT WELL AFTER RECIEVING PRN SEROQUEL AT HS. SHE REMAINS ON 2L O2 VIA NC W/SPO2 WNL AND RESPS E/U. LS TIGHT AND SLIGHTLY COARSE BUT PT IS CLEARING SECRETIONS W/STRONG PRODUCTIVE COUGH. NO ACUTE CHANGES, VSS/AFEBRILE. WCTM AND REPORT TO DAY RN.
[2020-11-08 04:47] LABS: BASOPHILS ABSOLUTE AUTO 0.01 K/mm3 (0.00-0.23); BASOPHILS PERCENT AUTO 0 % (0-2); EOSINOPHILS PERCENT AUTO 0 % (0-6); Hematocrit 32.4 % (33.0-51.0); Hemoglobin 9.6 g/dL (11.5-16.0); IMMATURE GRAN ABSOLUTE AUTO 0.04 K/mm3 (0.00-0.10); IMMATURE GRAN PERCENT AUTO 1 % (0-1); LYMPHOCYTES PERCENT AUTO 19 % (21-46); MONOCYTES ABSOLUTE AUTO 0.46 K/mm3 (0.16-1.47); MONOCYTES PERCENT AUTO 6 % (4-13); Mean Corpuscular HGB Conc 29.6 g/dL (31.5-36.5); Mean Corpuscular Volume 108 fL (80-100); Mean Platelet Volume 9.4 fL (9.1-12.4); NEUTROPHILS ABSOLUTE AUTO 6.01 K/mm3 (1.96-9.15); NEUTROPHILS PERCENT AUTO 75 % (41-73); Platelet Count 192 K/mm3 (150-400); RDW Coefficient Variation 14.2 % (11.7-14.2); RDW Standard Deviation 56.1 fL (35.1-46.3); White Blood Cell Count 8.02 K/mm3 (4.00-11.30)
[2020-11-08 05:09] LABS: Albumin, Blood 2.4 g/dL (3.4-5.0); Anion Gap 2 mmol/L (6-16); Blood Urea Nitrogen 16 mg/dL (8-24); Bun/Creatinine Ratio 26.8 (12.0-20.0); CO2, Blood 40 mmol/L (21-32); Calcium, Blood 8.5 mg/dL (8.5-10.1); Chloride, Blood 98 mmol/L (98-108); Glomerular Filtration Rate >60 (60-); Glucose, Blood 107 mg/dL (70-99); Phosphorus, Blood 3.5 mg/dL (2.5-4.9); Potassium, Blood 3.9 mmol/L (3.5-5.5); Sodium, Blood 140 mmol/L (136-145)
--- NOTE | 2020-11-08 17:27 | NUR ---
SUMMARY PT SITTING UP IN BED EATING DINNER AND VISITING WITH HER DAUGHTER, PT HAS BEEN COOPERATIVE WITH CARE T/O THE DAY, EMOTIONAL AT TIMES, BUT PLEASANT, PT UP WITH PT/OT, PT HOPEFUL TO GO TO SNF LONG ENOUGH TO RETURN HOME AFTERWARDS, PT MED PER EMAR FOR PAIN, VSS, NO ACUTE CHANGES, WILL CONT TO MONITOR
--- NOTE | 2020-11-09 04:43 | NUR ---
SUMMARY: A/O, SPECIFIES NEEDS AND PLEASANT/COOPERATIVE W/CARE. SHE CAN BE SLIGHTLY LABILE AT TIMES WHEN CARE NEEDS ARE NOT MET IMMEDIATELY BUT SHE CALMS W/EXPLANATION AND REASSURANCE. SHE'S BEEN UP TO BSC W/1PA TO VOID BUT WAS INCONTINENT AT TIMES W/LINEN AND ATTENDS CHANGED PRN. PT CONT'S TO REPORT LLE, BACK AND NECK PAIN W/ROXICODONE AND TYLENOL RECIEVED PRN PER EMAR. KPAD IS ALSO IN PLACE AND PT REPORTS IMPROVED PAIN CONTROL. SHE REMAINS ON 2L O2 VIA NC W/RESPS E/U AT REST AND SOME SOB W/EXERTION. SWELLING TO EXT'S IMPROVING W/DIURESIS. PT HOPEFUL TO GO TO SNF W/POSSIBLE D/C TODAY. NO ACUTE CHANGES, VSS/AFEBRILE. WCTM AND REPORT TO DAY RN.
--- NOTE | 2020-11-09 17:39 | NUR ---
SUMMARY PT SITTING UP IN BED EATING DINNER, PT HAS BEEN PLEASANT AND COOPERATIVE T/O THE DAY, MED PER EMAR FOR PAIN, PT UP WITH PT/OT, PT OCC TAKES OFF HER O2, REMINDED PT TO LEAVE IT ON WITH ANY ACTIVITY, PT HOPEFUL TO DC TO HER DAUGHTERS HOUSE TOMORROW WITH HOME HEALTH, VSS, WILL CONT TO MONITOR
--- NOTE | 2020-11-10 03:46 | NUR ---
DIRECTOR RECORDS MANAGEMENT SUMMARY A/OX4, AWAKE T/O THE NIGHT. UP TO BSC WITH SBA. C/O PAIN IN L. KNEE/BACK, MEDICATED PER EMAR WELL USE OF HEATING PAD. CURRENTLY ON 2L WITH SATS GREATER THAN 92. VSS. NO ACUTE CHANGES AT THIS TIME. BED IN LOWEST POSITION WITH CALL LIGHT IN REACH. WILL CONTINUE TO MONITOR AND REPORT TO ONCOMING RN.
[2020-11-10] MEDS ORDERED: LASIX40 MG PO (10:52)
--- NOTE | 2020-11-10 11:52 | NUR ---
PT DISCHARGED AT 1130. PT GOING HOME WITH HOME HEALTH. PT AOX4 AND ABLE TO CALL APPROPRIATELY. NO DISTRESS NOTED. PT INDEPENDENT TO COMMODE. PT HAD PAPERS REVEIWED AND EDUCATIONAL MATERIAL SENT WITH PT. THIS BUTTING SAW OPERATOR TRIED TO CALL AND SCHEDULE APPOITMENT WITH [facility]. LEFT MESSAGE FOR THEM TO SCHEDULE A FOLLOW UP APPOINTMENT IN 72 HRS. PT LEFT BEFORE HOME O2 EVAL WAS DONE PT STATED SHE NEEDED TO GO DAUGHTER WAS WAITING. PERSONAL BELONGS WERE WITH PT AND EDUCATONAL MATERIAL SENT. PT ESCORTED VIA WHEEL CHAIR.
== END 2020-11-10 11:33 | disposition home health service (06) | DRG 291 ==
LOC: ER 11:20 → MEDS 18:37
PROVIDERS: Emergency Medicine; Family Medicine; ADMIT Hospitalist
DX: I11.0 Hypertensive heart disease with heart failure (principal); I50.31 Acute diastolic (congestive) heart failure; J96.21 Acute and chronic respiratory failure with hypoxia; G92 Toxic encephalopathy; J44.1 Chronic obstructive pulmonary disease with (acute) exacerbation; N39.0 Urinary tract infection, site not specified; L03.116 Cellulitis of left lower limb; Z20.822 Contact with and (suspected) exposure to COVID-19; F31.9 Bipolar disorder, unspecified; M17.12 Unilateral primary osteoarthritis, left knee; M16.12 Unilateral primary osteoarthritis, left hip; D64.9 Anemia, unspecified; E03.9 Hypothyroidism, unspecified; I73.9 Peripheral vascular disease, unspecified; G47.30 Sleep apnea, unspecified; F41.9 Anxiety disorder, unspecified; E66.9 Obesity, unspecified; F17.210 Nicotine dependence, cigarettes, uncomplicated
CPT/HCPCS: 0241U; 36415; 70450; 71045; 73502; 73562-LT; 80048; 80053; 80069; 81001; 82947; 83880; 84484; 85025; 85610; 94640; 94760; 96365; 96375; 97110; 97116; 97162; 97530; 99283-25; 99285-25; A9270; C8929; G0480; J0696; J1650; J1940; J2930; P9612; Q9957